=== PATIENT | female | born 1995 | race Two or more races ===

== ENCOUNTER → 2021-05-27 | Outpatient (CLI) | payer OTHER ==
[~2021-05-27] MED LIST: ALBUTEROL2.5 MG/3 M; FAMOTIDINE20 MG; FLUTICASONE-SA1 EAC4; IRON325 MG PO; PRENATAL CAPLE1 EAC1 PO
== END | disposition home or self-care (01) ==
LOC: NST 12:43
PROVIDERS: ATTEND Obstetrics & Gynecology
DX: Z34.83 Encounter for supervision of other normal pregnancy, third trimester (principal)

== ENCOUNTER 2021-05-30 11:16 | Inpatient (IN) | payer OTHER ==
[~2021-05-30] VITALS: Ht 152.4 cm; Wt 68.0 kg
[2021-05-30] MEDS ORDERED: PRENATAL CAPLE1 EAC1 PO (11:52)
[2021-05-30] MEDS ORDERED: IRON325 MG PO (11:52)
[2021-05-31] MEDS ORDERED: ALBUTEROL2.5 MG/3 M (08:08)
[2021-05-31] MEDS ORDERED: FAMOTIDINE20 MG (08:08)
[2021-05-31] MEDS ORDERED: FLUTICASONE-SA1 EAC4 (08:08)
== END 2021-06-02 14:11 | disposition home or self-care (01) | DRG 786 ==
LOC: LDR 11:16 → OB/GYN 18:55
PROVIDERS: ADMIT Obstetrics & Gynecology Maternal & Fetal Medicine; ATTEND Obstetrics & Gynecology Maternal & Fetal Medicine
PROC: 4A1HXFZ Monitoring of Products of Conception, Cardiac Rhythm, External Approach (ICD-10-PCS; 2021-05-30)
PROC: 10D00Z1 Extraction of Products of Conception, Low, Open Approach (ICD-10-PCS; principal; 2021-05-30 16:15)
DX: O65.9 Obstructed labor due to maternal pelvic abnormality, unspecified (principal); O60.14X0 Preterm labor third trimester with preterm delivery third trimester, not applicable or unspecified; O42.113 Preterm premature rupture of membranes, onset of labor more than 24 hours following rupture, third trimester; O99.824 Streptococcus B carrier state complicating childbirth; Z3A.35 35 weeks gestation of pregnancy; Z37.0 Single live birth